=== PATIENT | male | born 1960 | race Two or more races ===

== ENCOUNTER → 2016-09-24 | Day surgery (SDC) | payer OTHER ==
[~2016-09-24] MED LIST: BLOOD PRESSURE MED PO; CHOLESTEROL MED PO; HEADACHE MED PO
--- NOTE | ~2016-09-24 | OR ---
Unit #: [id number] #: [id number] Patient: TONYA FERMIN [id number] [address] [address] [id number] O MR#: [id number] NAME: TONYA FERMIN ROOM: Date of Procedure: 09/24/2016 Admission Date: 09/24/2016 Surgeon: Pee Capps M.D. : 1960 Attending Physician: Pee Capps M.D. OPERATIVE REPORT PROCEDURE PERFORMED Colonoscopy. PREOPERATIVE DIAGNOSIS Screening colonoscopy. POSTOPERATIVE DIAGNOSIS Internal hemorrhoids. ANESTHESIA Monitored anesthesia care. DESCRIPTION OF PROCEDURE After adequate explanation of the risks, benefits and alternatives of the procedure, an informed consent was obtained from the patient. The patient was brought to the Endoscopy Suite. Intravenous sedation was administered. The patient was placed in the left lateral position. The colonoscope was introduced into the rectum and advanced to the cecum without difficulty. Once in the cecum, the anatomic landmarks were identified very well. The ileocecal valve was examined. The appendiceal orifice was examined. The scope was slowly withdrawn with the findings as noted in the next section. Adequate mucosal visualization of the colonic mucosa was done upon slow withdrawal. The scope was slowly withdrawn into the rectum and a retroflexed view was also obtained. The scope was withdrawn. The patient tolerated the procedure very well. FINDINGS CECUM: Normal. ILEOCECAL VALVE: Normal. APPENDICEAL VALVE: Normal. ASCENDING COLON: Normal. TRANSVERSE COLON: Normal. DESCENDING COLON: Normal. SIGMOID COLON: Normal. RECTUM: Nonbleeding internal hemorrhoids. Scope withdrawal time was over 6 minutes. ASSESSMENT AND PLAN The patient is a 56-year-old male, who presented for screening colonoscopy. Noted to have evidence of internal hemorrhoids. No polyps or neoplastic lesions noted. The patient will be started on a high-fiber Unit #: [id number] #: [id number] Patient: TONYA FERMIN diet and follow up in the office as needed. Dictated by... Galen Newberry/benedicto TD: 09/25/2016 04:42 JOB #: [id number] CC: Ranjeet Estrada M.D. OPERATIVE REPORT X Pee Capps MD PROCEDURE OPERATIVE NOTE
== END | disposition home or self-care (01) ==
LOC: COPS 13:01
DX: Z12.11 Encounter for screening for malignant neoplasm of colon (principal); K64.8 Other hemorrhoids; I10 Essential (primary) hypertension; E78.5 Hyperlipidemia, unspecified; Z79.899 Other long term (current) drug therapy